=== PATIENT | female | born 1985 | race Caucasian/White ===

== ENCOUNTER → 2020-10-17 | Outpatient (CLI) | payer OTHER | LOC: CT 08:12 | DX: R10.2 Pelvic and perineal pain (principal); K76.0 Fatty (change of) liver, not elsewhere classified; K59.00 Constipation, unspecified; Z87.898 Personal history of other specified conditions; Z90.710 Acquired absence of both cervix and uterus | CPT/HCPCS: Q9967 ==

== ENCOUNTER → 2021-04-22 | Outpatient (CLI) | payer OTHER ==
[~2021-04-22] MED LIST: LIDOCAINE PATCH 5% TOP; MOBIC15 MG PO; ROBAXIN 750 MG750 MG PO
[2021-04-22 10:48] LABS: HEMOGLOBIN 11.4 gm/dl (12.3-15.3); RED BLOOD COUNT 4.66 M/UL (4.00-5.10)
== END ==
LOC: OPSV2 09:26
PROVIDERS: Obstetrics & Gynecology
DX: Z01.812 Encounter for preprocedural laboratory examination (principal); R10.2 Pelvic and perineal pain
CPT/HCPCS: 81001; 85025

== ENCOUNTER → 2021-04-29 | Day surgery (SDC) | payer OTHER | END | disposition home or self-care (01) | LOC: OR 08:08 | DX: T83.84XA Pain due to genitourinary prosthetic devices, implants and grafts, initial encounter (principal); Z98.51 Tubal ligation status; Z90.710 Acquired absence of both cervix and uterus; U07.1 COVID-19; F32.A Depression, unspecified; Z79.01 Long term (current) use of anticoagulants; Z88.5 Allergy status to narcotic agent; Z88.1 Allergy status to other antibiotic agents; Z53.8 Procedure and treatment not carried out for other reasons | CPT/HCPCS: U0002 ==